=== PATIENT | male | born 1995 | race Caucasian/White ===

== ENCOUNTER 2017-05-23 07:28 | Emergency (ER) | payer OTHER ==
[~2017-05-23] VITALS: Ht 180.3 cm; Wt 70.5 kg
[2017-05-23] MEDS ORDERED: KETOROLAC 60 MG/2 ML VIAL (J1885) IM ONE (08:00)
[2017-05-23] MEDS ORDERED: PERCOCET 5MG/325MG TAB PO ONE (08:00)
[2017-05-23 08:39] LABS: BASO % 0.5 % (0.0-1.0); EOS # 0.1 10^3/uL (0.0-0.50); EOS % 1.6 % (0.0-3.0); IMMATURE GRANULOCYTE % 0.4 % (0-0); LYMPH # 1.4 10^3/uL (1.5-6.5); LYMPH % 18.2 % (24.0-44.0); MEAN CORPUSCULAR HEMOGLOBIN 30.8 pg (27.0-33.0); MEAN CORPUSCULAR VOLUME 87.9 fl (80.0-96.0); MONO # 0.6 10^3/uL (0.0-0.8); MONO % 8.3 % (0.0-5.0); NEUTROPHILS # 5.5 10^3/uL (1.8-7.7); PLATELET COUNT, AUTOMATED 236 10^3/uL (150-450); RED CELL DISTRIBUTION WIDTH 11.7 % (11.5-14.5); WHITE BLOOD COUNT 7.7 10^3/uL (4.0-10.0)
--- NOTE | 2017-05-23 08:57 | REP ---
Clinical: Right flank pain. Findings: The right kidney demonstrates 2 mm nonobstructing intrarenal calculus, mild edematous enlargement and trace perinephric stranding without significant hydroureteronephrosis or obvious obstructing ureteral calculus. The left kidney demonstrates 2 mm and 5 mm nonobstructing intrarenal calculi without hydroureternephrosis or perinephric stranding. The bladder is grossly unremarkable. Liver, spleen, pancreas, gallbladder, and bilateral adrenal glands are normal for noncontrast evaluation. The enteric system is without obstruction or acute inflammatory process and a normal terminal ileum and appendix are identified in the right lower quadrant. The 2 mm calcification is identified with in the prostate gland to the left of midline. The bladder is essentially unremarkable. No ascites. No free air. No adenopathy. Surrounding musculoskeletal structures are intact. Lung bases are clear. Impression: Mild edematous enlargement to the right kidney with trace perinephric stranding as well as nonobstructing bilateral intrarenal calculi. Differential diagnosis may include recently passed stone as well as pyelonephritis and should be correlated clinically. Signed by Michael Navarrete MD 05/23/2017 08:48 A
[2017-05-23 09:10] LABS: CALCIUM LEVEL 8.8 MG/DL (8.5-10.1); CREATININE FOR GFR 1.75 MG/DL (0.70-1.30); GLOMERULAR FILTRATION RATE 51.2 (>60); POTASSIUM SERUM 4.3 MEQ/L (3.5-5.1)
[2017-05-23 10:07] VITALS: BP 121/68
== END 2017-05-23 10:09 | disposition home or self-care (01) ==
LOC: M ED 07:28
DX: N13.1 Hydronephrosis with ureteral stricture, not elsewhere classified (principal); Z87.442 Personal history of urinary calculi
CPT/HCPCS: 36415; 74176; 80048; 81001; 85025; 87086; 96372; 99284; J1885

== ENCOUNTER 2019-05-26 14:30 | Emergency (ER) | payer OTHER ==
[~2019-05-26] VITALS: Ht 180.3 cm; Wt 72.7 kg
[2019-05-26] MEDS ORDERED: NAPROXEN 250 MG TAB PO ONE (16:00)
[2019-05-26] MEDS ORDERED: BENZONATATE 100 MG CAP PO ONE (16:00)
--- NOTE | 2019-05-26 16:21 | REP ---
Chest x-ray: Two views. History: Chest pain with cough . Comparison study: No comparison . Findings: The lungs are well inflated and free of infiltrate. The pleural angles are sharp. The heart size is normal. Pulmonary vasculature is not increased. No significant bony abnormality is seen. Impression: Negative chest x-ray. Electronically Signed by Jordan Adame MD 05/26/2019 04:12 P
[2019-05-26 17:16] VITALS: BP 124/60
[2019-05-26] MEDS ORDERED: NAPR-837 PO (17:20)
[2019-05-26] MEDS ORDERED: MUCI600T31 PO (17:20)
[2019-05-26] MEDS ORDERED: BENZ200C70 PO (17:20)
== END 2019-05-26 17:36 | disposition home or self-care (01) ==
LOC: M ED 14:30
DX: J20.9 Acute bronchitis, unspecified (principal)

== ENCOUNTER 2019-07-30 10:34 | Emergency (ER) | payer OTHER ==
[~2019-07-30] VITALS: Ht 182.9 cm; Wt 72.7 kg
[~2019-07-30 10:34] MED LIST: BENZ200C70 PO; MUCI600T31 PO; NAPR-837 PO
[2019-07-30 14:33] LABS: BASO # 0.1 10^3/uL (0.0-0.2); BASO % 0.9 % (0.0-1.0); EOS # 0.1 10^3/uL (0.0-0.5); EOS % 1.4 % (0.0-3.0); HEMOGLOBIN 16.5 g/dl (13.5-17.5); LYMPH # 1.9 10^3/uL (1.5-5.0); LYMPH % 24.9 % (24.0-44.0); MEAN CORPUSCULAR HEMOGLOBIN 30.2 pg (27.0-33.0); MEAN CORPUSCULAR HGB CONC 34.4 g/dl (32.0-36.5); MEAN CORPUSCULAR VOLUME 87.8 fl (80.0-96.0); MONO # 0.5 10^3/uL (0.0-0.8); MONO % 6.7 % (0.0-5.0); NEUTROPHILS % 65.4 % (36.0-66.0); PLATELET COUNT, AUTOMATED 287 10^3/uL (150-450); RED BLOOD COUNT 5.47 10^6/uL (4.30-6.10); WHITE BLOOD COUNT 7.7 10^3/uL (4.0-10.0)
[2019-07-30 15:02] LABS: ALT/SGPT 49 U/L (12-78); BILIRUBIN,DIRECT 0.2 MG/DL (0.0-0.2); BILIRUBIN,TOTAL 0.9 MG/DL (0.2-1.0); BLOOD UREA NITROGEN 17 MG/DL (7-18); CALCIUM LEVEL 9.5 MG/DL (8.5-10.1); CARBON DIOXIDE LEVEL 30 MEQ/L (21-32); CHLORIDE LEVEL 104 MEQ/L (98-107); CREATININE FOR GFR 1.18 MG/DL (0.70-1.30); GLOMERULAR FILTRATION RATE > 60.0 (>60); GLUCOSE, FASTING 93 MG/DL (70-100); LIPASE 82 U/L (73-393); POTASSIUM SERUM 5.1 MEQ/L (3.5-5.1); SODIUM LEVEL 138 MEQ/L (136-145)
[2019-07-30 16:22] VITALS: BP 119/57
[2019-07-30] MEDS ORDERED: FLOM0.4C39 PO (17:03)
[2019-07-30] MEDS ORDERED: IBUP80TA PO (17:03)
[2019-07-30] MEDS ORDERED: ONDA4TAB6 PO (17:03)
--- NOTE | 2019-07-30 17:20 | REP ---
CT abdomen and pelvis without IV or oral contrast: Renal stone protocol. History: Flank pain. Right-sided Comparison study: May 23, 2017. Findings: Preliminary digital ethics officer radiograph is unremarkable. The lung bases are clear on axial CT images. The liver is normal in size homogeneous in texture. The spleen is borderline measuring 13.6 cm in craniocaudal span. It is homogeneous. No adrenal lesion is seen on either side. No abnormalities noted in the pancreas or the gallbladder. There is no evidence of hydronephrosis. There are however multiple small calculi in each kidney. The largest of these is a 3 mm calculus in the lower pole on the left. There are there are approximately seven separate calculi in the collecting system of the left kidney and four separate calculi are visible in the right kidney. No ureteral calculus is observed. However, there is a 3 mm calculus and/or on the posterior wall of the urinary bladder just to the right of midline. This could be in the intramural segment of the right ureterovesical junction. It could possibly be a recently passed ureteral stone in the bladder lumen as well. No other intraluminal calculus is seen. However, there is a 6 mm calculus at the dome of the bladder in the location of the urachal duct. This is unchanged from May 23, 2017 prior study. There are dystrophic calcifications in the prostate again noted. Normal appendix is seen. No bowel abnormality is noted. Impression: 1. There are multiple intrarenal calculi in both kidneys. No hydronephrosis. 2. There is a calculus just to the right of midline along or within the bladder wall. This could be in the intramural segment of the right UVJ or a recently passed stone. 3. There is a urachal duct calculus again noted unchanged. Electronically Signed by Jordan Adame MD 07/31/2019 01:14 P
== END 2019-07-30 17:14 | disposition home or self-care (01) ==
LOC: M ED 10:34
DX: N20.0 Calculus of kidney (principal); N20.1 Calculus of ureter; N23 Unspecified renal colic; N21.9 Calculus of lower urinary tract, unspecified; R79.89 Other specified abnormal findings of blood chemistry

== ENCOUNTER 2021-12-28 08:33 | Emergency (ER) | payer OTHER ==
[~2021-12-28] VITALS: Ht 180.3 cm; Wt 77.2 kg
[~2021-12-28 08:33] MED LIST changes: +FLOM0.4C39 PO; +IBUP80TA PO; +ONDA4TAB6 PO
[2021-12-28] MEDS ORDERED: NS 1,000 ML IV ONE (08:45)
[2021-12-28] MEDS ORDERED: MORPHINE 4 MG/ML 1ML VIAL/SYRINGE IV ONE (08:45)
[2021-12-28] MEDS ORDERED: ONDANSETRON 4MG/2ML VIAL IV ONE (08:45)
[2021-12-28 09:19] LABS: BASO # 0.1 10^3/uL (0.0-0.2); BASO % 0.9 % (0.0-1.0); EOS # 0.2 10^3/uL (0.0-0.5); HEMATOCRIT 43.5 % (42.0-52.0); HEMOGLOBIN 15.5 g/dl (13.5-17.5); LYMPH # 1.8 10^3/uL (1.5-5.0); LYMPH % 22.3 % (24.0-44.0); MEAN CORPUSCULAR HEMOGLOBIN 30.4 pg (27.0-33.0); MEAN CORPUSCULAR HGB CONC 35.6 g/dl (32.0-36.5); MEAN CORPUSCULAR VOLUME 85.3 fl (80.0-96.0); MONO # 0.6 10^3/uL (0.0-0.8); MONO % 6.7 % (2.0-8.0); NEUTROPHILS # 5.5 10^3/uL (1.5-8.5); NEUTROPHILS % 67.6 % (36.0-66.0); PLATELET COUNT, AUTOMATED 282 10^3/uL (150-450); WHITE BLOOD COUNT 8.2 10^3/uL (4.0-10.0)
[2021-12-28] MEDS ORDERED: fentaNYL 100 MCG/2 ML INJECTION IV ONE (09:40)
[2021-12-28 09:46] LABS: ALBUMIN 4.2 GM/DL (3.2-5.2); ALT/SGPT 64 U/L (12-78); BILIRUBIN,DIRECT < 0.1 MG/DL (0.0-0.2); BILIRUBIN,TOTAL 0.5 MG/DL (0.2-1.0); BLOOD UREA NITROGEN 18 MG/DL (7-18); CALCIUM LEVEL 9.6 MG/DL (8.5-10.1); CARBON DIOXIDE LEVEL 27 MEQ/L (21-32); CHLORIDE LEVEL 102 MEQ/L (98-107); CREATININE FOR GFR 1.58 MG/DL (0.70-1.30); GLOMERULAR FILTRATION RATE 55.9 (>60); GLUCOSE, FASTING 101 MG/DL (70-100); POTASSIUM SERUM 5.4 MEQ/L (3.5-5.1); SODIUM LEVEL 136 MEQ/L (136-145)
[2021-12-28] MEDS ORDERED: IPRATROPIUM 0.5MG/ALBUTEROL 2.5MG INH SOL UD 3ML (DUONEB) As Ordered ONE (10:48)
[2021-12-28] MEDS ORDERED: ACETAMINOPHEN *IV* 1,000 MG in IV 1 EA IV ONE (11:10)
[2021-12-28] MEDS ORDERED: ONDA4TAB6 PO (12:08)
[2021-12-28] MEDS ORDERED: FLOM0.4C39 PO (12:08)
[2021-12-28] MEDS ORDERED: OXYC1TAB23 PO (12:08)
[2021-12-28] MEDS ORDERED: KETO10TAB PO (12:08)
[2021-12-28 12:31] VITALS: BP 119/59
== END 2021-12-28 12:32 | disposition home or self-care (01) ==
LOC: M ED 08:33
DX: N20.1 Calculus of ureter (principal); N23 Unspecified renal colic
CPT/HCPCS: 74176; 80048; 80076; 81001; 85025; 87086; 96361; 96374; 96375; 99284; J0131; J2270; J2405; J3010

== ENCOUNTER 2023-09-26 13:30 | Emergency (ER) | payer OTHER ==
[~2023-09-26] VITALS: Ht 188 cm; Wt 90.4 kg
[~2023-09-26 13:30] MED LIST changes: +KETO10TAB PO; +OXYC1TAB23 PO
[2023-09-26 15:50] VITALS: BP 131/82; TEMP 97.3; O2SAT 96
[2023-09-26 16:39] LABS: BASO # 0.1 10^3/uL (0.0-0.2); BASO % 0.8 % (0.0-1.0); EOS # 0.1 10^3/uL (0.0-0.5); EOS % 0.6 % (0.0-3.0); HEMATOCRIT 46.4 % (42.0-52.0); HEMOGLOBIN 16.4 g/dl (13.5-17.5); LYMPH # 1.5 10^3/uL (1.5-5.0); LYMPH % 19.4 % (24.0-44.0); MEAN CORPUSCULAR HEMOGLOBIN 30.7 pg (27.0-33.0); MEAN CORPUSCULAR HGB CONC 35.3 g/dl (32.0-36.5); MEAN CORPUSCULAR VOLUME 86.9 fl (80.0-96.0); MONO # 0.4 10^3/uL (0.0-0.8); MONO % 5.7 % (2.0-8.0); NEUTROPHILS # 5.7 10^3/uL (1.5-8.5); NEUTROPHILS % 73.1 % (36.0-66.0); PLATELET COUNT, AUTOMATED 308 10^3/uL (150-450); RED BLOOD COUNT 5.34 10^6/uL (4.30-6.10); WHITE BLOOD COUNT 7.7 10^3/uL (4.0-10.0)
[2023-09-26] MEDS: KETOROLAC 30 MG/ML 1ML VIAL IV ONE (16:45)
[2023-09-26] MEDS: NS 1,000 ML IV ONE (16:45)
[2023-09-26] MEDS: TAMSULOSIN 0.4 MG CAP PO ONE (16:45)
[2023-09-26] MEDS ORDERED: ONDA4TAB6 PO (18:12)
[2023-09-26] MEDS ORDERED: KETO10TAB PO (18:12)
[2023-09-26] MEDS ORDERED: FLOM0.4C39 PO (18:12)
== END 2023-09-26 18:31 | disposition home or self-care (01) ==
LOC: M ED 13:30
DX: N20.2 Calculus of kidney with calculus of ureter (principal); Z79.899 Other long term (current) drug therapy
CPT/HCPCS: 74176; 80047; 81001; 85025; 96374; 99284; J1885